=== PATIENT | female | born 1975 | race Caucasian/White ===

== ENCOUNTER 2018-12-24 10:34 | Emergency (ER) | payer SELFPAY ==
[~2018-12-24] VITALS: Wt 71.0 kg
[2018-12-24 10:37] VITALS: BP 158/83; PULSE 79; RESP 18
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
[2018-12-24] MEDS ORDERED: KETOROLAC 30 MG INJ IM STA (12:02)
[2018-12-24] MEDS ORDERED: IBUP-1542 PO (13:16)
[2018-12-24] MEDS ORDERED: ACET325T33 PO (13:16)
[2018-12-24] MEDS ORDERED: BACL10TA PO (13:16)
== END 2018-12-24 14:26 | disposition home or self-care (01) ==
LOC: FTE 10:34
DX: M54.2 Cervicalgia (principal)
CPT/HCPCS: 72040; 81025; 96372